=== PATIENT | male | born 1970 | race Caucasian/White ===

== ENCOUNTER 2022-09-10 11:40 | Emergency (ER) | payer OTHER, SELFPAY ==
--- NOTE | ~2022-09-10 | XR_ITS ---
EXAMINATION: XR ankle RT min 3V INDICATION: Right ankle pain and swelling TECHNIQUE: Four views of the right ankle are obtained. COMPARISON: None available FINDINGS: There is no fracture, dislocation, or subluxation. 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 There are plantar and posterior calcaneal enthesophytes. There is mild soft tissue swelling of a nkle. IMPRESSION: 1. Mild soft tissue swelling without acute osseous abnormality. Reviewed, dictated and finalized at location A.
[2022-09-10 11:42] VITALS: BP 154/96; PULSE 66; RESP 16; TEMP 36.3; O2SAT 98
--- NOTE | 2022-09-10 12:40 | PC.NURSE ---
pt. able to bare weight on extremity. pt. walked to the bathroom in triage without difficulty.
--- NOTE | 2022-09-10 13:36 | ED.LOWEXIN ---
HPI - Extremity Injury (Lower) General Chief Complaint: Extremity Injury, Lower Stated Complaint: R foot pain Time Seen by Provider: 09/10/22 12:21 Source: patient Mode of arrival: ambulatory Limitations: no limitations History of Present Illness HPI Narrative: This is a 51-year-old male that presents emergency department after a right ankle injury today. Reports he rolled the ankle going down some steps. Reports pain and swelling to the area. No other injuries. Denies decreased range of motion or numbness. Related Data Allergies Allergy/AdvReac Type Severity Reaction Status Date / Time doxycycline Allergy Unknown Verified 09/10/22 11:51 onion Allergy Unknown Verified 09/10/22 11:51 Review of Systems Review of Systems: CONSTITUTIONAL: Denies fever MUSCULOSKELETAL: Reports joint pain, and myalgia. NEUROLOGIC: Denies numbness, or weakness. All systems reviewed & are unremarkable except as noted in HPI and below PMFSH Past Medical History Medical History (Updated 09/10/22 @ 13:40 by Cherrie Hernandez PA-C) History of diabetes mellitus History of hyperlipidemia History of hypertension Social History Social History (Updated 09/10/22 @ 13:37 by Cherrie Hernandez PA-C) Smoking status: Never smoker Exam Narrative: GENERAL: Well-appearing, well-nourished, and in no acute distress. HEAD: Normocephalic, atraumatic. EYES: EOMI. EXTREMITIES: Normal range of motion. Mild edema about the right lateral malleoli. Normal DP pulse. Normal sensation SKIN: Warm, dry, no rash. NEURO: No focal deficits. Alert and oriented x3. PSYCH: Normal mood and affect Course Vital Signs Vital signs: Vital Signs Temperature 97.4 F L 09/10/22 11:42 Pulse Rate 66 09/10/22 11:42 Respiratory Rate 16 09/10/22 11:42 Blood Pressure 154/96 H 09/10/22 11:42 Pulse Oximetry 98 09/10/22 11:42 Oxygen Delivery Room Air 09/10/22 11:42 Temperature 97.4 F L 09/10/22 11:42 Pulse Rate 66 09/10/22 11:42 Respiratory Rate 16 09/10/22 11:42 Blood Pressure 154/96 H 09/10/22 11:42 Pulse Oximetry 98 09/10/22 11:42 Oxygen Delivery Room Air 09/10/22 11:42 MDM - Extremity Injury (Lower) MDM Narrative Medical decision making narrative: Patient presents emergency department for right ankle pain after an injury just prior to arrival. He is neurovascularly intact. Right ankle x-ray shows mild soft tissue swelling without acute osseous abnormality. Patient placed in Erik wrap and given crutches. Instructed on care of ankle sprain. He is to follow-up with primary care doctor. He was given warnings to return to the ER Imaging Data Radiologist's impression: ITS Impressions Ankle X-Ray 09/10/22 12:30 IMPRESSION: 1. Mild soft tissue swelling without acute osseous abnormality. Critical Care Time Critical Care Time Critical Care Time: No Discharge Plan Discharge Clinical Impression: Ankle sprain and strain Patient Disposition: Home, Self-Care Condition: Stable Instructions: Ankle Sprain (ED) Additional Instructions: Return to the emergency department if you experience fever, redness and swelling of your leg, numbness, or any other symptoms that are concerning to you Wear ERIK wrap and use crutches. No weight on the affected leg until able to bear weight without pain. Ice and elevate extremity. Pain medication as needed and directed. Follow up with your doctor for further care. Follow-up/Referrals: Tabitha,Seun Engle MD [Primary Care Provider] - 3 Days
== END 2022-09-10 14:21 | disposition home or self-care (01) ==
PROVIDERS: Emergency Provider Emergency Medicine; PCP Family Medicine Sports Medicine
DX: S93.401A Sprain of unspecified ligament of right ankle, initial encounter (principal); S96.911A Strain of unspecified muscle and tendon at ankle and foot level, right foot, initial encounter; E11.9 Type 2 diabetes mellitus without complications; E78.5 Hyperlipidemia, unspecified; I10 Essential (primary) hypertension; X50.9XXA Other and unspecified overexertion or strenuous movements or postures, initial encounter
CPT/HCPCS: 73610; 99283